=== PATIENT | female | born 1950 | race Caucasian/White ===

== ENCOUNTER 2019-01-25 13:28 | Emergency (ER) | payer MEDICARE, BC ==
[2019-01-25 14:33] VITALS: BP 122/72
--- NOTE | 2019-01-25 14:43 | UC ---
FLU HPI - HPI Summary HPI Summary: Flulike symptoms over the past 2 days with fever, chills, bodyaches, mild sore throat, dry cough, fatigue - History of Current Complaint Chief Complaint: UCGeneralIllness Stated Complaint: FLU SXS Time Seen by Provider: 01/25/19 14:37 Hx Obtained From: Patient ?: No Onset/Duration: Sudden Onset Severity Currently: Mild Severity Initially: Moderate Pain Intensity: 0 Associated Signs & Symptoms: Positive: Fever, Myalgia, Cough - Dry nonproductive cough, sore throat., Sore Throat - Allergy/Home Medications Allergies/Adverse Reactions: Allergies Allergy/AdvReac Type Severity Reaction Status Date / Time No Known Allergies Allergy Verified 01/25/19 14:29 Home Medications: Home Medications Fluticasone NASAL SPRAY 50MCG* [Flonase NASAL SPRAY 50MCG*] 2 spray BOTH NARES DAILY 01/25/19 [History Confirmed 01/25/19] Montelukast Sodium TAB* [Singulair TAB*] 10 mg PO DAILY 01/25/19 [History Confirmed 01/25/19] celeCOXIB CAP* [CeleBREX CAP*] 200 mg PO DAILY 01/25/19 [History Confirmed 01/25] PMH/Surg Hx/FS Hx/Imm Hx Previously Healthy: Yes - Surgical History Surgical History: Yes Surgery Procedure, Year, and Place: R elbow. fractured hip - 85 - Social History Alcohol Use: Rare Substance Use Type: None Smoking Status (MU): Never Smoked Tobacco Review of Systems All Other Systems Reviewed And Are Negative: Yes Constitutional: Positive: Fever, Chills, Fatigue Skin: Positive: Negative Eyes: Positive: Negative ENT: Positive: Sore Throat, Nasal Discharge Respiratory: Positive: Cough - Dry nonproductive cough Cardiovascular: Positive: Negative Gastrointestinal: Positive: Negative Genitourinary: Positive: Negative Motor: Positive: Negative Neurovascular: Positive: Negative Musculoskeletal: Positive: Myalgia Neurological: Positive: Negative, Headache - Mild headache Psychological: Positive: Negative Is Patient Immunocompromised?: No Physical Exam Triage Information Reviewed: Yes Appearance: No Pain Distress, Well-Nourished, Ill-Appearing - Mild ill-appearing Vital Signs: Initial Vital Signs Temp 99.5 F 01/25/19 14:28 Pulse 88 01/25/19 14:28 Resp 18 01/25/19 14:28 BP 122/72 01/25/19 14:28 Pulse Ox 98 01/25/19 14:28 Vital Signs Reviewed: Yes Eye Exam: Normal ENT: Positive: Nasal congestion, Nasal drainage - Clear nasal coryza Neck exam: Normal Neck: Positive: Supple, Nontender, No Lymphadenopathy Respiratory Exam: Normal Respiratory: Positive: Chest non-tender, Lungs clear, Normal breath sounds, No respiratory distress Cardiovascular Exam: Normal Abdominal Exam: Normal Bowel Sounds: Positive: Present Musculoskeletal Exam: Normal Neurological Exam: Normal Neurological: Positive: Alert, Muscle Tone Normal Psychological Exam: Normal Skin Exam: Normal Flu Course/Dx - Course Course Of Treatment: Pt comfortable here in no distress. Will treat for influenza with Tamiflu. Patient is agreeable to treating without doing the influenza test. - Differential Dx/Diagnosis Differential Diagnosis/HQI/PQRI: Influenza Provider Diagnosis: Influenza Discharge - Sign-Out/Discharge Documenting (check all that apply): Patient Departure All imaging exams completed and their final reports reviewed: No Studies - Discharge Plan Condition: Fair Disposition: HOME Prescriptions: Oseltamivir CAP* [Tamiflu CAP*] 75 mg PO BID 5 Days #10 cap Patient Education Materials: Influenza (DC) Referrals: Cristofer Alberto DO [Primary Care Provider] - Additional Instructions: Go home and rest, increase fluids, follow up with your own doctor in 3-4 days if no improvement. - Billing Disposition and Condition Condition: FAIR Disposition: Home - Attestation Statements Provider Attestation: I was available for consult. This patient was seen by the [facility]. The patient was not presented to, seen by, or examined by me. -Corrine
== END 2019-01-25 14:54 | disposition home or self-care (01) ==
LOC: UCCORT 13:28
DX: J11.1 Influenza due to unidentified influenza virus with other respiratory manifestations (principal)
CPT/HCPCS: 99202; G0463